=== PATIENT | male | born 1975 | race Caucasian/White ===

== ENCOUNTER → 2023-10-10 11:10 | Outpatient (REF) | payer BC, SELFPAY ==
--- NOTE | 2023-10-10 12:41 | EEG.RPT ---
Electroencephalogram Report
Recording
Date of EE10/10/23
Type of EEG: Routine
Length of EEG recordin minutes
Done with Video Recording: Yes
Patient Status: Outpatient
Recording Conditions: Awake, Drowsy and Asleep
Hyperventilation Performed: No
Photic Stimulation Performed: Yes
Hand Dominance: Unknown
Report
LESS THAN 1 HOUR REPORT
METHODS:
A 21 channel digitized electroencephalogram (EEG) was performed in the [facility]. The 10/20 international system of electrode placement was used with ECG and lateral/vertical eye movements recorded. Study lasted 24 minutes.
ELECTROENCEPHALOGRAPHER IMPRESSION(S):
Quality of study
Good
Background
Mixed medium amplitude background of theta and alpha frequency
In maximal wakefulness, there was a low amplitude anterior-posterior voltage gradient of alpha frequency.
Asymmetry of the background is seen with continuous left temporal lobe slowing
Sleep
Drowsiness present
Stage 1 sleep seen
Hyperventilation
Not performed
Photic Stimulation
No activation of the record
ECG
Unremarkable
Abnormal EEG Activity
Persistent left temporal slowing throughout the study at T5, no interictal epileptiform dishcarges or seizures seen
LESS THAN 1 HOUR EEG INTERPRETATION:
Mildly abnormal EEG due to left temporal lobe slowing.
CLINICAL CORRELATION:
This study was mildly suggestive of a focal cortical dysfunction in the left temporal lobe, is non-specific as to etiology.
Clinical correlation required.
== END ==
LOC: RCS 11:10
PROVIDERS: ATTENDING PHYSICIAN Internal Medicine
DX: Q28.2 Arteriovenous malformation of cerebral vessels (principal); F44.5 Conversion disorder with seizures or convulsions
CPT/HCPCS: 95816